=== PATIENT | male | born 2000 ===

== ENCOUNTER 2018-09-29 20:43 | Emergency (ER) | payer MEDICAID ==
[2018-09-29 20:59] VITALS: BP 133/84; PULSE 85; RESP 16; TEMP 98.3; O2SAT 97
[2018-09-29] MEDS ORDERED: Dexamethasone 4 mg/1 ml IM ONE (21:13)
--- NOTE | 2018-09-29 21:19 | ED PDOC ---
HPI: General Adult Time Seen by Provider: 09/29/18 21:04 Chief Complaint (Nursing): ENT Problem Chief Complaint (Provider): Throat Pain History Per: Patient History/Exam Limitations: no limitations Onset/Duration Of Symptoms: Days (x3) Current Symptoms Are (Timing): Still Present Additional Complaint(s): 18 year old male presents to the ED for evaluation of throat pain associated with pain upon swallowing for the past three days. He reports taking OTC Tylenol with no relief, his last dose 4 hours ago. Patient states he has a history of strep infections with similar symptoms, having had two in this past calendar year - one in summer and one in fall. Denies other complaints, including fever. PMD: Tamiment Past Medical History Reviewed: Historical Data, Nursing Documentation, Vital Signs Vital Signs: Last Vital Signs Temp 98.3 F 09/29/18 20:56 Pulse 85 09/29/18 20:56 Resp 16 09/29/18 20:56 BP 133/84 09/29/18 20:56 Pulse Ox 97 09/29/18 20:56 - Medical History PMH: No Chronic Diseases - Surgical History Surgical History: No Surg Hx - Family History Family History: States: Unknown Family Hx - Social History Current smoker - smoking cessation education provided: No Alcohol: None Drugs: Denies - Home Medications Home Medications: Ambulatory Orders Medication Instructions Recorded RX: Amoxicillin 875 mg PO BID #14 tablet 09/29/18 RX: Ibuprofen [Motrin Tab] 600 mg PO Q6 PRN #20 tab 09/29/18 - Allergies Allergies/Adverse Reactions: Allergies Allergy/AdvReac Type Severity Reaction Status Date / Time No Known Allergies Allergy Verified 09/29/18 20:56 Review of Systems ROS Statement: Except As Marked, All Systems Reviewed And Found Negative ENT: Positive for: Throat Pain (with painful swallowing) Physical Exam - Reviewed Nursing Documentation Reviewed: Yes Vital Signs Reviewed: Yes - Physical Exam Comments: GENERAL APPEARANCE: Patient is awake, alert, oriented x 3, in no acute distress. Resting comfortably. SKIN: Warm, dry; (-) cyanosis. EYES: (-) conjunctival pallor. ENMT: Mucous membranes moist. Airway patent: (-) stridor. Pharynx: clear, uvula midline (+) 3+ tonsilar hypertrophy, (+) bilateral tonsilar erythema, (+) exudates. TMs: (-) erythema, (-) bulging. NECK: Supple, FROM (-) tenderness, (-) stiffness, (-) lymphadenopathy. CHEST AND RESPIRATORY: (-) wheezing; (-) rales, (-) rhonchi; breath sounds eq ual bilaterally. Respirations even and nonlabored. HEART AND CARDIOVASCULAR: (-) irregularity EXTREMITIES: (-) deformity NEURO AND PSYCH: Mental status as above; (-) focal findings. Gait: steady. Speech: clear. (-) facial asymmetry - ECG O2 Sat by Pulse Oximetry: 97 (RA) Pulse Ox Interpretation: Normal Medical Decision Making Medical Decision Making: Initial Impression: tonsillitis Time: 2104 Initial Plan: --Amoxicillin 500mg PO --Decadron 10mg IM --Ibuprofen 600mg PO --Throat culture --Rapid strep 2215 Rapid Strep: Negative On re-evaluation, patient reports improvement of symptoms. On exam, patient remains AAOx3, in no acute distress. Vitals stable. Lab/Diagnostic results d/w the patient in great detail. Diagnosis of tonsillitis d/w the patient. Based on history, exam and diagnostic results, plan will be for outpatient follow up with PMD. Patient instructed to follow-up with pmd / referral provided / the clinic in 1- 2 days without fail. Advised to take medication as prescribed. Return to the emergency room at any time for any new or worsening symptoms. Patient states he fully agrees with and understands discharge instructions. States that he agrees with the plan and disposition. Verbalized and repeated discharge instructions and plan. I have given the patient opportunity to ask any additional questions. Scribe Attestation: Documented by Naina Tinajero, acting as a scribe for Jennifer Mariscal PA-C. Provider Scribe Attestation: All medical record entries made by the Scribe were at my direction and personally dictated by me. I have reviewed the chart and agree that the record accurately reflects my personal performance of the history, physical exam, medical decision making, and the department course for this patient. I have also personally directed, reviewed, and agree with the discharge instructions and disposition. Disposition - Clinical Impression Clinical Impression: Tonsillitis with exudate, Throat pain in adult - Patient ED Disposition Is Patient to be Admitted: No Counseled Patient/Family Regarding: Studies Performed, Diagnosis, Need For Followup, Rx Given - Disposition Referrals: Spike Shah MD [Family Provider] - Disposition: Routine/Home Disposition Time: 22:15 Condition: STABLE Additional Instructions: The emergency medical care you received today was directed at your acute symptoms. If you were prescribed any medication, please fill it and take as directed. It may take several days for your symptoms to resolve. Return to the Emergency Department if your symptoms worsen, do not improve, or if you have any other problems. Please contact your doctor in 2 days for re-evaluation and follow up / or call one of the physicians/clinics you have been referred to that are listed on the Patient Visit Information form that is included in your discharge packet. Bring any paperwork you were given at discharge with you along with any medications you are taking to your follow up visit. Our treatment cannot replace ongoing medical care by a primary care provider (PCP) outside of the emergency department. Prescriptions: RX: Amoxicillin 875 mg PO BID #14 tablet RX: Ibuprofen [Motrin Tab] 600 mg PO Q6 PRN #20 tab PRN Reason: Pain, Moderate (4-7) Instructions: Sore Throat in Adults Forms: [employer] (Colombian) Print Language: SINHALA - POA Present On Arrival: None Results - Lab Results Lab Results: 09/29/18 21:25 Grp A Beta Strep Ag Negative
== END 2018-09-29 22:22 | disposition home or self-care (01) ==
LOC: H.ER 20:43
DX: J03.90 Acute tonsillitis, unspecified (principal); R07.0 Pain in throat
CPT/HCPCS: 87070; 87430; 96372; 99283; J1100